=== PATIENT | male | born 1995 | race Caucasian/White ===

== ENCOUNTER → 2021-01-10 | Outpatient (CLI) | payer OTHER, MEDICAID ==
--- NOTE | 2021-01-10 15:03 | 2DMMODE ---
[place] [address] 2 D/M-MODE ECHOCARDIOGRAM Name: AFSANEH GALAN Room: [facility]#: [id number] Admission: 01/10/21 Attend Phys: Isabella Beard Discharge: Date of : 89 Date of Service: 01/10/21 1503 Report #: [id number] THIS REPORT FOR: cc: Isabella Kebede,Isabella Ayala,Noah Gavin MD [facility] ~ APPROVED REPORT Study performed: 01/10/2021 13:35:25 EXAM: Comprehensive 2D, Doppler, and color-flow Echocardiogram Patient Location: Out-Patient BSA: 2.15 HR: 78 bpm BP: 120/70 mmHg Other Information Study Quality: Good Indications Palpitations 2D Dimensions IVSd: 11.39 (7-11mm) LVOT Diam: 20.94 (18-24mm) LVDd: 48.10 mm PWd: 9.53 (7-11mm) Ascending Ao: 27.91 (22-36mm) LVDs: 29.34 (25-40mm) Aortic Root: 31.13 mm Volumes Left Atrial Volume (Systole) LA ESV Index: 12.60 mL/m2 Aortic Valve AoV Peak Sb.: 0.90 m/s AO Peak Gr.: 3.24 mmHg LVOT Max P.08 mmHg AO Mean Gr.: 2.03 mmHg LVOT Mean P.54 mmHg LVOT Max V: 0.88 m/s AO V2 VTI: 16.56 cm LVOT Mean V: 0.57 m/s GABY (VTI): 3.44 cm2 LVOT V1 VTI: 16.56 cm Mitral Valve E/A Ratio: 1.18 [place] [address] 2 D/M-MODE ECHOCARDIOGRAM Name: AFSANEH GALAN Room: [facility]#: [id number] Admission: 01/10/21 Attend Phys: Isabella Beard Discharge: Date of : 89 Date of Service: 01/10/21 1503 Report #: [id number] MV Decel. Time: 169.90 ms MV E Max Sb.: 0.54 m/s MV PHT: 49.27 ms MVA (PHT): 4.47 cm2 TDI E/Lateral E': 3.86 E/Medial E': 4.50 Medial E' Sb.: 0.12 m/s Lateral E' Sb.: 0.14 m/s Pulmonary Valve PV Peak Sb.: 0.84 m/s PV Peak Gr.: 2.80 mmHg Left Ventricle The left ventricle is normal size. There is normal LV segmental wall motion. There is normal left ventricular wall thickness. Left ventricular systolic function is normal. The left ventricular ejection fraction is within the normal range. LVEF is 55-60%. The left ventricular diastolic function is normal. Right Ventricle The right ventricle is normal size. The right ventricular systolic function is normal. Atria The left atrium size is normal. The right atrium size is normal. Aortic Valve The aortic valve is normal in structure. No aortic regurgitation is present. There is no aortic valvular stenosis. Mitral Valve The mitral valve is normal in structure. There is no mitral valve regurgitation noted. No evidence of mitral valve stenosis. Tricuspid Valve The tricuspid valve is normal in structure. There is no tricuspid valve regurgitation noted. Pulmonic Valve The pulmonary valve is normal in structure. There is no pulmonic valvular regurgitation. Great Vessels The aortic root is normal in size. IVC [place] [address] 2 D/M-MODE ECHOCARDIOGRAM Name: AFSANEH GALAN Room: [facility]#: [id number] Admission: 01/10/21 Attend Phys: Isabella Beard Discharge: Date of : 89 Date of Service: 01/10/21 1503 Report #: [id number] collapses >50% with inspiration. Pericardium There is no pericardial effusion. <Conclusion> The left ventricle is normal size. There is normal left ventricular wall thickness. Left ventricular systolic function is normal. The left ventricular ejection fraction is within the normal range. LVEF is 55-60%. The left ventricular diastolic function is normal. The right ventricle is normal size. The left atrium size is normal. The aortic valve is normal in structure. The mitral valve is normal in structure. The tricuspid valve is normal in structure. IVC is normal in size and collapses >50% with inspiration. There is no pericardial effusion. There is normal LV segmental wall motion. <ELECTRONICALLY SIGNED> By: Noah Ayala MD, FACC 01/10/21 1503 1503 1503 Noah Ayala MD, FACC /INF
== END ==
LOC: M.CRD 13:48
PROVIDERS: ATTEND Nurse Practitioner Family
DX: R00.2 Palpitations (principal)

== ENCOUNTER 2021-04-27 14:06 | Emergency (ER) | payer OTHER, MEDICAID ==
[~2021-04-27] VITALS: Ht 185.4 cm; Wt 86.2 kg
[2021-04-27] MEDS ORDERED: IBUPROFEN 800800 M1 PO (14:19)
[2021-04-27] MEDS ORDERED: FLEXERIL PO (14:19)
[2021-04-27] MEDS ORDERED: MEDROLDOSEPACK PO (16:52)
[2021-04-27] MEDS ORDERED: APAP W/CODEINE1 TA2 PO (16:52)
[2021-04-27 17:05] VITALS: BP 108/69
== END 2021-04-27 17:05 | disposition home or self-care (01) ==
LOC: M.ERS 14:06
DX: S16.1XXA Strain of muscle, fascia and tendon at neck level, initial encounter (principal); M54.6 Pain in thoracic spine; R51.9 Headache, unspecified; V49.49XA Driver injured in collision with other motor vehicles in traffic accident, initial encounter; Y93.I9 Activity, other involving external motion; Y92.413 State road as the place of occurrence of the external cause; Y99.8 Other external cause status